=== PATIENT | male | born 1975 | race Caucasian/White ===

== ENCOUNTER 2021-04-26 08:18 | Emergency (ER) | payer BC ==
[~2021-04-26] VITALS: Ht 177.8 cm; Wt 90.9 kg
[~2021-04-26 08:18] MED LIST: CLARITIN D TAB1 TAB PO; NORCO 325 MG-7.1 TAB PO
[2021-04-26 08:34] VITALS: TEMP 97.9
[2021-04-26] MEDS ORDERED: PERCOCET 325 MG1 TA2 PO ×2 (11:39→11:43)
[2021-04-26 11:46] VITALS: BP 121/80; PULSE 76
== END 2021-04-26 11:57 | disposition home or self-care (01) ==
LOC: COL.ER 08:18
DX: S22.42XA Multiple fractures of ribs, left side, initial encounter for closed fracture (principal); S32.029A Unspecified fracture of second lumbar vertebra, initial encounter for closed fracture; S32.039A Unspecified fracture of third lumbar vertebra, initial encounter for closed fracture; M25.512 Pain in left shoulder; R10.32 Left lower quadrant pain; F17.290 Nicotine dependence, other tobacco product, uncomplicated; W11.XXXA Fall on and from ladder, initial encounter; Y92.009 Unspecified place in unspecified non-institutional (private) residence as the place of occurrence of the external cause
CPT/HCPCS: J1885; J2270; J2405; J7030; Q9967

== ENCOUNTER 2022-05-07 05:59 | Day surgery (SDC) | payer BC ==
[~2022-05-07] VITALS: Ht 177.8 cm; Wt 92.1 kg
[~2022-05-07 05:59] MED LIST changes: +PERCOCET 325 MG1 TA2 PO
[2022-05-07 06:19] VITALS: BP 126/88; PULSE 60; TEMP 97.2
[2022-05-07 07:35] VITALS: BP 115/92; PULSE 61; TEMP 97.7
--- NOTE | 2022-05-07 07:35 | NUR ---
PT arrived from procedure and was settled by Yair RUFF. Written report obtained; VSS. PT oriented to room and call zapata, within reach. Visitor is present. PT provided a warm muffin and hot coffee per request. PT denies nausea and pain. Will monitor per intervals.
[2022-05-07 07:50] VITALS: BP 119/93; PULSE 64
--- NOTE | 2022-05-07 07:51 | NUR ---
0750 VSS. PT continues to eat and drink and denies nausea; expressed desire to be discharged. PT states DR has spoken to him. Call zapata remains within reach.
[2022-05-07 08:05] VITALS: BP 124/91; PULSE 58
--- NOTE | 2022-05-07 08:05 | NUR ---
VSS. IV discontinued due to discharge status. Catheter tip intact. Pressure bandage applied. NO redness or swelling noted. DC instructions and educational material reviewed with the PT and his visitor, who verbalized understanding and signed the realted paperwork. PT denied needing assitance changing into personal clothes and stated would assist. Call zapata remains within reach.
--- NOTE | 2022-05-07 08:09 | NUR ---
PT dismissed from [facility] via wheelchair to the PT entrence by Selin RUFF. PT has DC packet in hand and personal belongings and was transferred into the care of his , who is driving private car.
== END 2022-05-07 08:10 | disposition home or self-care (01) ==
LOC: SDCO 05:59
DX: Z12.11 Encounter for screening for malignant neoplasm of colon (principal); K57.30 Diverticulosis of large intestine without perforation or abscess without bleeding; K55.20 Angiodysplasia of colon without hemorrhage; K62.89 Other specified diseases of anus and rectum
CPT/HCPCS: J2704; J7030